=== PATIENT | female | born 1960 | race Two or more races ===

== ENCOUNTER 2016-08-31 07:26 | Day surgery (SDC) | payer OTHER ==
--- NOTE | 2016-08-29 08:52 | HP ---
DATE OF CLINIC: 08/25/16 VY MILLER : 1960 PLANNED PROCEDURE: Open Reduction Internal Fixation of Right Wrist Distal Radius Fracture DATE OF SURGERY: August 31, 2016 SURGEON: Ochoa Barroso M.D. HISTORY OF PRESENT ILLNESS Vy Barbosa is a 56 year old female. * Medication list reviewed with patient allergy list reviewed with patient. 56-year-old, RHD female with a fall at work on the ice on the sustaining an injury to her right wrist. She was seen at [facility] and xrays demonstrated a distal radius fracture. She was placed into a splint and sent to us for f/u. She complains today of pain in the right wrist, inability to use the wrist, she can't push, pull or carry anything with it. She has the splint in place. She has no previous injuries at this site and has no other complaints at this time. Past medical and surgical history significantly only for hypocholesterolemia. CURRENT MEDICATION * Naprosyn 500 MG Tablet 1 twice a day with food as needed for painLabel in Israeli, 30 days, 0 refills PAST MEDICAL/SURGICAL HISTORY [place]. SOCIAL HISTORY [employer]'s Language: JAPANESE Ana María. ALLERGIES * No Known Allergies REVIEW OF SYSTEMS No recent constitutional symptoms to include fevers and chills. No recent cardiovascular symptoms to include chest pain or palpitations. No recent respiratory symptoms to include shortness of breath or recent infections. PHYSICAL FINDINGS * Vitals taken 08/25/2016 02:51 pm BP-Sitting R 122/725 mmHg BP Cuff Size Regular Pulse Rate-Sitting 65 bpm Pulse Rhythm Regular Temp-Oral 97.4 F Height 57.5 in Weight 148 lbs Body Mass Index 31.5 kg/m2 Body Surface Area 1.59 m2 Pain Level 4 Ears, Nose, Throat: * ENT: normal. Lungs: * Clear to auscultation. Cardiovascular: Heart Rate And Rhythm: * Normal. Abdomen: * Normal. Patient is a well-developed, well-nourished female in no acute distress. She is awake, alert and conversant throughout the encounter. She is a primary Israeli speaker and her daughter translates for her. CARDIOVASCULAR: Intact peripheral pulses on bilateral upper extremities. No significant edema on inspection of bilateral upper extremities. NEUROLOGIC: Patient had intact coordinated composite motion of the bilateral upper extremities and sensation intact to light touch in all distributions of bilateral upper extremities. PSYCHIATRIC: Patient was oriented to person, place and time and displayed appropriate mood and affect during the encounter. SKIN: Exam of the skin on bilateral upper extremities showed no significant scars, lesions, rashes or masses. FOCUSED MUSCULOSKELETAL EXAM: Normal resting station of the bilateral shoulders, elbows and wrists. Right wrist shows no erythema, but shows ecchymosis and swelling with tenderness to palpation globally about the wrist. She is neural intact in the radial, ulnar, median, AIN and PIN distributions. The hand is warm and well perfused. Her motion is limited secondary to pain and her splint. IMAGING Review of her xrays demonstrates a dorsally angulated and displaced distal radius fracture with unacceptable alignment parameters. ASSESSMENT 56-year-old female with a displaced, angulated right distal radius fracture. THERAPY * Patient fall risk screen positive. * Patient eligible for fall risk assessment. * Patient received fall risk assessment. PLAN * Unsp fracture of the lower end of right radius, init Percocet 5-325 MG TABS, 1 every 4 - 6 hours as needed, 20 days, 0 refills * Open treatment of fracture of distal radius -right Right wrist ORIF. Risk, benefits and alternatives were discussed and patient elected to proceed with surgery. Informed consent was obtained and documented in the chart. Patient will be placed on the schedule for next week for surgery. SURGICAL CONSENT We have discussed surgical options including , and nonoperative management. The patient was counseled in detail regarding the diagnosis, treatment options available, prognosis of each treatment option and the potential risks and complications. The risks of surgery include, but are not limited to, anesthetic , neurovascular complications, pulmonary embolism, deep vein thrombosis, wound dehiscence, failure of any or all of the discussed procedures, infection of the joint or surrounding soft tissue, need for revision surgery, chronic pain, limitations in activities of daily living, inability to return to work, and loss of normal range of motion or functional use of the extremity. There is the possibility of failure over time that may require additional operative or nonoperative treatment. The patient acknowledged that there are a number of perioperative risks not mentioned here and would still like to proceed. The patient is aware of and understands these risks, and wishes to proceed with the proposed surgical procedure and other procedures as indicated at the time of surgery. We will have the patient see their PCP for a preoperative medical risk assessment. The preoperative instructions were reviewed with the patient and all questions were answered.
[~2016-08-31 07:26] MED LIST: CEFAZOLIN SODIUM 2 GRAM PREMIX 100 ML IV ONE; IV START KIT ONE; LACTATED RINGERS 1,000 ML ONE
[2016-08-31] MEDS ORDERED: PROPOFOL 20 ML IV ONE (08:02)
[2016-08-31] MEDS ORDERED: MIDAZOLAM HCL 1 MG/ML 2ML VIAL ONE (08:02)
[2016-08-31] MEDS ORDERED: FENTANYL 100 MCG/2 ML VIAL ONE (08:02)
[2016-08-31] MEDS ORDERED: CEFAZOLIN SODIUM 2 GRAM PREMIX 100 ML IV PRN (08:30)
[2016-08-31] MEDS ORDERED: ROPIVACAINE 0.5% 30 ML VIAL ONE (09:05)
[2016-08-31] MEDS ORDERED: NERVE BLOCK PROCEDURAL TRAY 1 EACH ONE (09:05)
[2016-08-31] MEDS ORDERED: DEXAMETHASONE SOD PHOS 4 MG/1 ML VIAL ONE (11:34)
[2016-08-31] MEDS ORDERED: ONDANSETRON 4 MG/2ML 2 ML VIAL ONE (11:34)
[2016-08-31] MEDS ORDERED: NALOXONE HCL 0.4 MG/ML VIAL IV PRN (12:05)
[2016-08-31] MEDS ORDERED: PROMETHAZINE HCL 25 MG/ML VIAL IM PRN (12:05)
[2016-08-31] MEDS ORDERED: ONDANSETRON 4 MG/2ML 2 ML VIAL IV PRN (12:05)
[2016-08-31] MEDS ORDERED: MORPHINE SULFATE 4 MG/ML SYRINGE IV PRN (12:05)
[2016-08-31] MEDS ORDERED: FENTANYL 100 MCG/2 ML VIAL IV PRN (12:05)
[2016-08-31] MEDS ORDERED: ATROPINE SULFATE 0.4 MG/1 ML VIAL IV PRN (12:05)
[2016-08-31] MEDS ORDERED: HYDRALAZINE HCL 20 MG/1 ML VIAL IV PRN (12:05)
[2016-08-31] MEDS ORDERED: MEPERIDINE 25 MG/ML SYRINGE IV PRN (12:05)
[2016-08-31] MEDS ORDERED: LABETALOL HCL 5 MG/ML 20ML VIAL IV PRN (12:05)
[2016-08-31] MEDS ORDERED: LACTATED RINGERS 1,000 ML IV SCH ×2 (12:15→13:33)
[2016-08-31] MEDS ORDERED: BUPIVACAINE 0.5% (PRES FREE) 30 ML VIAL ONE (12:19)
--- NOTE | 2016-08-31 13:06 | RAD ---
WRIST RIGHT 2 VIEWS HISTORY: Intraoperative fluoroscopy for ORIF. COMPARISONS: Plain films 08/25/2016 FINDINGS: 2 overhead fluoroscopic images demonstrate volar sideplate with screw fixation across the patient's previously seen and described radial fracture. Osseous detail is limited secondary to fluoroscopic technique. Fluoroscopy time: 54 seconds. IMPRESSION: Intraoperative fluoroscopy as above. Please see orthopedist note regarding the procedure for further details.
--- NOTE | 2016-08-31 13:25 | PCMBPN ---
Brief Post Op Note: Date of Procedure: 08/31/16 Start Time: 1130 Preoperative Diagnosis: 1. Right Distal Radius Fracture Postoperative Diagnosis: 1. Same Procedure: Right DR ORIF Surgeon: Ochoa Barroso MD Assist: SHAW Oneal Anesthesia: Uli Mcfarlane CRNA Findings: See above Condition: Stable Complications: None IV Fluids: 1100 mLs of LR Urine Output: 0 mLs Estimated Blood Loss: 5 mLs Tourniquet Time: 52 min at 250mmHg Specimens: N/A Implants: Synthes 4-Hole DVR plate, 6-DR locking screws, 3-Proximal cortical screws, 1-Proximal locking screw Drains: [N/A]
[2016-08-31] MEDS ORDERED: ACETAMINOPHEN 325 MG TABLET PO PRN (13:33)
[2016-08-31] MEDS ORDERED: OXYCODONE HCL 5 MG TABLET PO PRN (13:33)
[2016-08-31] MEDS ORDERED: HYDROMORPHONE HCL 1 MG/ML SYRINGE IV PRN (13:33)
[2016-08-31] MEDS ORDERED: DIPHENHYDRAMINE HCL 50 MG/1 ML VIAL IV PRN (13:33)
--- NOTE | 2016-08-31 13:51 | RAD ---
HISTORY: Postop ORIF. COMPARISON: Intraoperative fluoroscopy earlier on the same day and plain films 08/25/2016 TECHNIQUE: two view. Wrist Laterality:right FINDINGS: Bones: Sideplate with screw fixation along the volar aspect of the distal radius is again noted. Hardware is intact without signs of failure or loosening. No new fracture or dislocation. The patient's distal radial fracture is again noted, as well as the ulnar styloid injury. Joints: Normal Soft tissue: Soft tissue swelling is noted about the wrist. Overlying bandaging does limit assessment. IMPRESSION: Satisfactory postoperative exam.
--- NOTE | 2016-09-01 10:39 | OP ---
Vy MILLER : 1960 [id number] DATE OF SERVICE: August 31, 2016 PREOPERATIVE DIAGNOSIS: Right distal radius fracture. POSTOPERATIVE DIAGNOSIS: Right distal radius fracture. PROCEDURE PERFORMED: RIGHT DISTAL RADIUS OPEN REDUCTION INTERNAL FIXATION. SURGEON: Ochoa Barroso M.D. CLINICAL ADMINISTRATIVE COORDINATOR: Ivan Guzman P.A.-C. ANESTHESIA: Ghada Celestin.R.N.Florentino. SPECIMENS: No material was sent to the laboratory. ESTIMATED BLOOD LOSS: 5 mL FLUIDS REPLACED: 1,100 mL of crystalloid. TOURNIQUET TIME: 52 minutes at 250 mmHg. IMPLANTS: Synthes 4 hole DVR plate with 8 locking screws distally, three proximal cortical screws and one locking screw proximally. DRAINS: No drains. INDICATIONS: This is a 56-year-old right-hand dominant female who sustained an injury to her wrist in a ground level fall. She had immediate pain and deformity. She was seen at the ED and diagnosed with a distal radius fracture and referred to orthopedics for evaluation. On evaluation with orthopedics she was found to have physical exam and radiographic findings consistent with an intra-articular distal radius fracture. She was offered open reduction internal fixation in order to restore appropriate alignment characteristics and improve her functional range of motion. The risks, benefits and alternatives were discussed at length with the patient and she elected to proceed with surgery. Informed consent was obtained and documented in the chart and the patient was placed on the schedule the first available convenience. DESCRIPTION OF PROCEDURE: The patient was identified in the pre-operative holding area where she was marked with an indelible marker by the operating surgeon. She was taken to the operating room where she was placed in the supine position on the operating room table. Regional anesthesia was administered and general anesthesia was induced. A well padded pre-calibrated nonsterile tourniquet was placed on her right upper arm. She was prepped and draped in the usual sterile fashion for surgery. An operative time out was performed and confirmed by all members of the operative team. She received perioperative antibiotics. The arm was elevated and exsanguinated using an Esmarch bandage and the tourniquet was inflated to 250 mmHg. A standard longitudinal incision was made over the flexor carpi radialis tendon. This was retracted radially and neurovascular structures were protected. Dissection was carried through the floor of the FCR tendon sheath exposing the proximal portion of the radius. The subperiosteal peel of the pronator was performed exposing the fracture. The fracture was debrided and provisional reduction was obtained. The plate was brought onto the field and pinned in place. Distal screws were placed first with nonlocking screw placed initially in order to suck the plate down to the distal portion of the radius and then locking screws across the rest of the distal radius with the original screw replaced with a locker. The proximal portion of the plate was held up in kickstand fashion and then was brought down to the diaphyseal portion of the distal radius after the distal fixation had been obtained. AP and lateral projections demonstrated appropriate position for the fracture with good reduction parameters. Proximal screws were placed obtaining fixation and compression across the fracture site. At this point the wound was copiously irrigated with sterile saline and closed in layers. A sterile dressing of Xeroform, fluffs, web roll and a volar slab splint was applied and held in place with an MAIK bandage. The tourniquet was deflated and the drapes were removed and the patient was awakened from her anesthesia and extubated in the operating room without difficulty and transferred to a stretcher and taken postoperatively to the postanesthesia care unit in stable condition. There were no observed intraoperative complications during this procedure. Job [id number] Cc: [facility]
== END 2016-08-31 15:41 | disposition home or self-care (01) ==
LOC: SDC 07:26
PROVIDERS: ATTEND Orthopaedic Surgery
PROC: 0PSH04Z Reposition Right Radius with Internal Fixation Device, Open Approach (ICD-10-PCS; principal; 2016-08-31)
DX: S52.501A Unspecified fracture of the lower end of right radius, initial encounter for closed fracture (principal); E78.00 Pure hypercholesterolemia, unspecified; W00.0XXA Fall on same level due to ice and snow, initial encounter; Y99.0 Civilian activity done for income or pay
CPT/HCPCS: 25608; 76000; 73100 ×2; J3010; J1100; J2795; J2250; J2405; J7120; J0690